=== PATIENT | female | born 1985 | race Two or more races ===

== ENCOUNTER 2024-11-10 18:06 | Emergency (ER) | payer MEDICAID, OTHER ==
[~2024-11-10] VITALS: Ht 154.9 cm; Wt 59.0 kg
--- NOTE | 2024-11-10 19:04 | ED.PDOC ---
[employer] HPI Comments This is a 39 year old female brought in by presenting to the ED with chief complaint of abdominal pain/vaginal bleeding during . reports that the patient has been experiencing heavy vaginal bleeding with associated suprapubic pain since this morning. relays that the patient is currently 3 months , but not has visited an OBGYN recently due to just moving to the area. Patient denies any dysuria, vaginal discharge, fever, chills, N/V, or any other symptoms. Chief Complaint: Time Seen by MD: 19:00 Reviewed Notes: Nurses Notes, Medications, Allergies Allergies: Coded Allergies: NO KNOWN ALLERGIES (Unverified , 11/10/24) Information Source: Patient Mode of Arrival: Ambulatory Timing: Hours Prehospital treatment: None Severity: Moderate Bleeding Quality: Bright Red Onset Of Mass/Bleeding: Spontaneous Sexual Activity: Last Consensual [place]: Unknown Control: None History of: Current Associated Signs and Symptoms: Vaginal Bleeding, Abdominal Pain Past Medical History PAST MEDICAL HISTORY: Denies Surgical History: Denies all surgeries COOKER SODA History: No Pertinent COOKER SODA History Family History Family History: Reviewed,noncontributory to illness Social History Smoker: Non-Smoker Alcohol: Denies ETOH Use Drugs: Denies Drug Use Lives In: Home Constitutional: denies: chills, diaphoresis, fatigue, fever, malaise, sweats, weakness, others EENTM: denies: blurred vision, double vision, ear bleeding, ear discharge, ear drainage, ear pain, ear ringing, eye pain, eye redness, hearing loss, mouth pain, mouth swelling, nasal discharge, nose bleeding, nose congestion, nose pain, photophobia, tearing, throat pain, throat swelling, voice changes, others Respiratory: denies: cough, hemoptysis, orthopnea, SOB at rest, shortness of breath, SOB with excertion, stridor, wheezing, others Cardiovascular: denies: chest pain, dizzy spells, diaphoresis, Dyspnea on exertion, edema, irregular heart beat, left arm pain, lightheadedness, palpitations, PND, syncope, others Gastrointestinal: reports: abdominal pain; denies: abdomen distended, blood streaked bowels, constipated, diarrhea, dysphagia, difficulty swallowing, hematemesis, melena, nausea, poor appetite, poor fluid intake, rectal bleeding, rectal pain, vomiting, others Genitourinary: reports: abnormal vagina bleeding, ; denies: burning, d yspareunia, dysuria, flank pain, frequency, hematuria, incontinence, pain, vagina discharge, urgency, others Neurological: denies: dizziness, fainting, headache, left sided numbness, left sided weakness, numbness, paresthesia, pre-existing deficit, right sided numbness, right sided weakness, seizure, speech problems, tingling, tremors, weakness, others Musculoskeletal: denies: back pain, gout, joint pain, joint swelling, muscle pain, muscle stiffness, neck pain, others Integumetry: denies: bruises, change in color, change in hair/nails, dryness, laceration, lesions, lumps, rash, wounds, others Allergic/Immunocompromised: denies: Difficulty Healing, Frequent Infections, Hi ves, Itching, others Hematologic/Lymphatic: denies: anemia, blood clots, easy bleeding, easy bruising, swollen glands, others Endocrine: denies: excessive hunger, excessive sweating, excessive thirst, excessive urination, flushing, intolerance to cold, intolerance to heat, unexplained weight gain, unexplained weight loss, others Psychiatric: denies: anxiety, bipolar disorder, depression, hopeless, panic disorder, schizophrenia, sleepless, suicidal, others All Other Systems: Reviewed and Negative Physical Exam General Appearance: No Apparent Distress, Normal HEENT: Normal ENT Inspection, Pharynx Normal, TMs Normal Neck: Full Range of Motion, Non-Tender, Normal, Normal Inspection Respiratory: Chest Non-Tender, Lungs Clear, No Accessory Muscle Use, No Respiratory Distress, Normal Breath Sounds Cardiovascular: No Edema, No JVD, No Murmur, No Gallop, Normal Peripheral Pulses, Regular Rate/Rhythm Breast Exam: Deferred Gastrointestinal: No Organomegaly, No Pulsatile Mass, Normal Bowel Sounds, Soft, Tenderness (Suprapubic tenderness) Genitalia: Deferred Pelvic: Deferred Rectal: Deferred Extremities: No calf tenderness, Normal capillary refill, Normal inspection, Normal range of motion, Non-tender, No pedal edema Musculoskeletal : Apperance: Normal Neurologic: Alert, newborn hearing screener II-XII nml as Tested, No Motor Deficits, Normal Affect, Normal Mood, No Sensory Deficits Cerebellar Function: Normal Reflexes: Normal Skin: Dry, Normal Color, Warm Lymphatic: No Adenopathy Was a procedure done? Was a procedure done?: No Differential Diagnosis (COOKER SODA) Vaginal Bleeding: - Complete, - Incomplete, - Inevit able, - Missed, - Threatened, Abruptio Placentae, Blood Loss Anemia, Ectopic , Menorrhagia, Placenta Previa X-Ray, Labs, Meds, VS Vital Signs Date Time Temp Pulse Resp B/P (MAP) Pulse Ox O2 Delivery O2 Flow Rate FiO2 11/10/24 19:30 74 17 98 Room Air* 0 21 21 11/10/24 19:28 98.0 76 17 104/58 (73) 98 98.0 11/10/24 18:49 98.8 88 18 120/62 (81) 97 98.8 Lab Test 11/10/24 18:55 Range/Units Beta HCG, Quantitative 2964.1 H 1.5-4.2 mIU/mL Current Medications Medications (Trade) Dose Ordered Sig/[place]aly[place] Route Start Time Stop Time Status Last Admin Acetaminophen (Tylenol Tablet) 650 mg ONCE ONCE PO 11/10/24 18:45 11/10/24 18:46 DC 11/10/24 19:18 OB US: FINDINGS: Uterus: 12.1 x 5.5 x 5.2 cm. No intrauterine gestational sac is seen. Right adnexa: right ovary 2.7 x 1.8 x 2.6 cm. Normal arterial blood flow in the ovary. No right adnexal mass seen. Left adnexa: left ovary not visualized. No left adnexal mass seen. Other: There is a cystic structure possibly a gestational sac visualized in the cervix IMPRESSION: Cystic mass with a possible pole in the cervical canal which could be an active miscarriage of a gestational sac. Follow-up by trending beta HCGs and follow-up ultrasound as clinically indicated. Images Reviewed?: Images reviewed and evaluated by me Time of 1ST Reevaluation: 20:00 Reevaluation 1ST: Unchanged Time of 2ND Reevaluation: 22:01 Reevaluation 2ND: Improved Patient Education/Counseling: Diagnosis, Treatment, Prognosis, Need For Follow Up Family Education/Counseling: Diagnosis, Treatment, Prognosis, Need For Follow Up Comments pt had passed a large clot. she is much more comfortable, pain free and no longer bleeding. the US shows possible IUP in cervical canal. she may be having an incomplete misab. she will return in 48 hours for follow up Additional Information Previous visits reviewed: N/A The following tests were ordered, and results were reviewed by me: ABORH Type, UA, Beta HCG Quant. OB US Additional Information was gathered from interviewing the following independent historians: I reviewed and agreed with the following test results read by other providers: OB US I discussed treatment and results with medical personnel and: patient and hus band Comprehensive systems review obtained and negative except for what is stated in the HPI. Departure 1 Departure Time of Disposition: 22:04 Impression: Primary Impression: Incomplete miscarriage Disposition: HOME / SELF CARE / HOMELESS Condition: Stable Additional Instructions: pelvic rest. return in 48 hours for recheck. if anything concerns you, feel free to return sooner Discharged With: Self, Spouse Critical Care Note Critical Care Time?: Yes (55 min-critical care time only) Critical care comment: Due to concerns for patients condition deteriorating, the care required my highest level of attention and readiness to intervene. I assessed the patient, reviewed the medical records, ordered the appropriate tests and treatments, then reassessed for results and responsiveness. I communicated with medical personnel and consultants and formulated a plan of care. Total critical care time excludes any procedures Stability Stability form required: No Heart Score Heart Score: Heart Score Response (Comments) Value History N/A 0 EKG N/A 0 Age N/A 0 Risk Factors N/A 0 Troponin N/A 0 Total 0 I personally scribed for LIT ARNOLD MD ([email or web address]) on 11/10/24 at 19:04. Electron ically submitted by Robert Garrido ([email or web address]). I personally scribed for LIT ARNOLD MD ([email or web address]) on 11/10/24 at 21:50. Electronically submitted by Robert Garrido ([email or web address]). LIT ARNOLD MD Nov 10, 2024 19:04
[2024-11-10] MEDS: ACETAMINOPHEN 325 MG TAB PO ONE (19:18)
[2024-11-10 19:28] VITALS: BP 104/58; TEMP 98
[2024-11-10 19:30] VITALS: PULSE 74; RESP 17; O2SAT 98
--- NOTE | 2024-11-10 21:44 | DVH ---
OBSTETRIC ULTRASOUND PRIOR TO 14 WEEKS CLINICAL INDICATION: vaginal bleed TECHNIQUE: Multiple grayscale ultrasound images were obtained of the pelvis via transabdominal and tr ansvaginal approach for obstetric evaluation. Limited color Doppler and spectral Doppler acquisitions were also obtained. COMPARISON: None FINDINGS: Uterus: 12.1 x 5.5 x 5.2 cm. No intrauterine gestational sac is seen. Right adnexa: right ovary 2.7 x 1.8 x 2.6 cm. Normal arterial blood flow in the ovary. No right adnex al mass seen. Left adnexa: left ovary not visualized. No left adnexal mass seen. Other: There is a cystic structure possibly a gestational sac visualized in the cervix IMPRESSION: Cystic mass with a possible pole in the cervical canal which could be an active miscarriage of a gestational sac. Follow-up by trending beta HCGs and follow-up ultrasound as clinically indicated.
--- NOTE | 2024-11-10 21:44 | DVH ---
OBSTETRIC ULTRASOUND PRIOR TO 14 WEEKS CLINICAL INDICATION: vaginal bleed TECHNIQUE: Multiple grayscale ultrasound images were obtained of the pelvis via transabdominal and tr ansvaginal approach for obstetric evaluation. Limited color Doppler and spectral Doppler acquisitions were also obtained. COMPARISON: None FINDINGS: Uterus: 12.1 x 5.5 x 5.2 cm. No intrauterine gestational sac is seen. Right adnexa: right ovary 2.7 x 1.8 x 2.6 cm. Normal arterial blood flow in the ovary. No right adnex al mass seen. Left adnexa: left ovary not visualized. No left adnexal mass seen. Other: There is a cystic structure possibly a gestational sac visualized in the cervix which contai ns a ovoid soft tissue structure measuring 0.8 cm possibly a pole IMPRESSION: Cystic mass with a possible pole in the cervical canal which could be an active miscarriage of a gestational sac. Follow-up by trending beta HCGs and follow-up ultrasound as clinically indicated.
== END 2024-11-10 23:40 | disposition home or self-care (01) ==
LOC: ER 18:10
DX: O03.4 Incomplete spontaneous abortion without complication (principal); Z3A.12 12 weeks gestation of pregnancy
CPT/HCPCS: 36415; 76801; 76817; 84702; 86900; 86901